=== PATIENT | female | born 1955 | race Caucasian/White ===

== ENCOUNTER 2017-06-01 13:18 | Outpatient (CLI) | payer OTHER | END 2017-06-01 13:19 | disposition home or self-care (01) | LOC: WCC 13:18 | PROVIDERS: ATTEND Family Medicine | DX: K94.00 Colostomy complication, unspecified (principal) | CPT/HCPCS: 99211; G0463 ==

== ENCOUNTER 2018-07-16 07:42 | Outpatient (CLI) | payer OTHER ==
--- NOTE | 2018-07-16 09:34 | BD ---
DEXA BONE DENSITY STUDY: HISTORY: Postmenopausal. FINDINGS: Lumbar Spine: BMD (g/cm2) L1 0.868 T-Score: -1.1 L2 0.878 T-Score: -1.4 L3 0.864 T-Score: -2.0 L4 0.873 T-Score: -1.7 L1-L4 0.871 T-Score: -1.6 Femoral Neck: 0.754 T-Score: -0.9 Total Femur: 0.843 T-Score: -0.8 Impression: Normal bone mineral density of the left femoral neck and osteopenia of the lumbar spine. POS: [facility]
== END 2018-07-16 07:43 | disposition home or self-care (01) ==
LOC: BICMAMMO 07:42
PROVIDERS: ATTEND Internal Medicine Rheumatology
DX: M81.0 Age-related osteoporosis without current pathological fracture (principal); M85.88 Other specified disorders of bone density and structure, other site
CPT/HCPCS: 77080

== ENCOUNTER 2020-01-03 09:26 | Emergency (ER) | payer SELFPAY ==
[2020-01-03] MEDS ORDERED: HYDROcodone/Acetaminophen 5/325 mg Tablet ONE (09:48)
--- NOTE | 2020-01-03 09:51 | RAD ---
XR Knee Lt 4 View STANDARD HISTORY: Left knee pain FINDINGS: No fracture or dislocation is identified. No significant arthritic changes are seen.
[2020-01-03] MEDS ORDERED: Ibuprofen 200 MG TAB ONE (09:58)
== END 2020-01-03 10:35 | disposition home or self-care (01) ==
LOC: ERS 09:26
DX: M25.562 Pain in left knee (principal); I10 Essential (primary) hypertension; F41.9 Anxiety disorder, unspecified; M81.0 Age-related osteoporosis without current pathological fracture; Z79.899 Other long term (current) drug therapy

== ENCOUNTER 2020-01-20 10:34 | Outpatient (CLI) | payer OTHER ==
--- NOTE | 2020-01-20 14:10 | MRI ---
MRI OF THE LEFT KNEE WITHOUT CONTRAST: 01/20/20 INDICATION: History of left knee pain. COMPARISON: Left knee radiograph dated 01/03/20. FINDINGS: There is a full thickness radial tear involving the posterior root of the medial meniscus with partia l medial extrusion. There is some intrasubstance degenerative signal involving the posterior horn and body of the medial meniscus. The lateral meniscus is intact. The ACL, PCL, MCL and LCL are intact. The extensor mechanism is intact. There is a small subchondral insufficiency fracture involving the anterior central aspect of the medi al femoral condyle on image 14 of series 5 with underlying subchondral edema. There is an area of mil d chondrosis overlying this region. Very small marginal osteophytes affecting all major compartments of the left knee. There is a moderat e sized Costello's cyst. IMPRESSION: 1. Mild osteoarthrosis left knee. 2. Medial meniscal tear. 3. Small subchondral insufficiency fracture involving the anterior medial femoral condyle with s urrounding marrow edema. POS: [facility]
== END 2020-01-20 10:35 | disposition home or self-care (01) ==
LOC: SCSMRI 10:34
PROVIDERS: ATTEND Orthopaedic Surgery
DX: S83.242A Other tear of medial meniscus, current injury, left knee, initial encounter (principal); M17.12 Unilateral primary osteoarthritis, left knee; M84.452A Pathological fracture, left femur, initial encounter for fracture

== ENCOUNTER 2020-11-21 08:46 | Outpatient (CLI) | payer MEDICARE ==
[2020-11-21 11:36] LABS: Hemoglobin 14.2 g/dL (12.0-15.5); Mean Corpuscular HGB CONC 31.5 g/dL (32.0-36.0); Mean Corpuscular Hemoglobin 29.3 pg (27.0-33.0); Mean Platelet Volume 12.4 fl (7.4-10.4); Platelet Count 253 10x3/uL (150-450); RBC Distribution Width 15.6 % (11.5-14.5); Red Blood Cell (RBC) Count 4.85 10x6/uL (3.90-5.03); White Blood Cell (WBC) Count 14.5 10x3/uL (3.5-10.5)
[2020-11-21 11:38] LABS: Prothrombin Time 11.2 sec (9.5-12.1)
[2020-11-21 11:42] LABS: Anion Gap 15 mmol/L (10-20); BUN (Urea Nitrogen) 12 mg/dL (9.8-20.1); Calc. Creatinine Clearance 0 mL/min (70-130); Calcium 9.2 mg/dL (7.8-10.44); Carbon Dioxide 18 mmol/L (23-31); Chloride 108 mmol/L (98-107); Glucose 110 mg/dL (80-115); Potassium 4.8 mmol/L (3.5-5.1); Sodium 136 mmol/L (136-145)
[2020-11-21 12:06] LABS: MDiff Complete? YES
[2020-11-21 12:13] LABS: Monocytes 11 % (0-10); Neutrophil 31 % (42-75)
[2020-11-21 12:14] LABS: Lymphocytes 57 % (21-51)
[2020-11-21 12:15] LABS: Eosinophils 1 % (0-10)
[2020-11-21 12:17] LABS: Platelet Morphology Comment Appears Adequate; RBC Morphology Normal
[2020-11-21 12:38] LABS: Bilirubin Neg (Negative); Blood, Urine Negative (Negative); Clarity Clear (Clear); Glucose, Urine (Dipstick) Normal (Negative); Ketone, Urine Negative (Negative); Leukocyte Negative (Negative); Nitrite Negative (Negative); Protein, Urine (Dipstick) Negative (Neg-Trace); Urobilinogen Normal mg/dL (Less than 2)
[2020-11-21 12:54] LABS: Bacteria/HPF Rare-Few HPF (None Seen); RBC/HPF 0-3 HPF (0-3); Squamous Epithelial 0-3 HPF (0-3); WBC/HPF 0-3 HPF (0-3)
[2020-11-21 12:55] LABS: Mucous/LPF Rare LPF (<2+)
[2020-11-22 11:48] LABS: SARS-CoV-2 PCR by NAA Not Detected (NotDetected)
== END 2020-11-21 08:47 | disposition home or self-care (01) ==
LOC: LABBT 08:46
PROVIDERS: ATTEND Orthopaedic Surgery
DX: Z01.818 Encounter for other preprocedural examination (principal); M17.32 Unilateral post-traumatic osteoarthritis, left knee; Z20.822 Contact with and (suspected) exposure to COVID-19
CPT/HCPCS: 80048; 81001; 85025; 85610; 87081; 93005; U0003; U0005; 93010

== ENCOUNTER 2020-11-26 05:39 | Inpatient (IN) | payer MEDICARE ==
[2020-11-26] MEDS ORDERED: Tranexamic Acid 1,000 MG/10 ML VIAL ONE (06:03)
[2020-11-26] MEDS ORDERED: Vancomycin 1 GM/200 ML BAG ONE (06:03)
[2020-11-26] MEDS ORDERED: Fentanyl 100 MCG/2 ML VIAL ONE ×5 (06:20→09:34)
[2020-11-26] MEDS ORDERED: Midazolam HCl 2 mg/2 ml Vial ONE ×2 (06:20→06:26)
[2020-11-26] MEDS ORDERED: Lidocaine 1% (PF) 30 ML VIAL ONE (06:27)
[2020-11-26] MEDS ORDERED: diphenhydrAMINE 25 MG CAP PO PRN (06:49)
[2020-11-26] MEDS ORDERED: Ondansetron PF 4 MG/2 ML Vial IVP PRN ×2 (06:49→08:30)
[2020-11-26] MEDS ORDERED: Acetaminophen 325 MG TAB PO PRN (06:49)
[2020-11-26] MEDS ORDERED: Promethazine HCl 25 MG/ML VIAL IM PRN ×3 (06:49→09:08)
[2020-11-26] MEDS ORDERED: HYDROcodone/Acetaminophen 10/325 mg Tablet PO PRN ×3 (06:49→08:30)
[2020-11-26] MEDS ORDERED: Zolpidem Tartrate 5 MG TAB PO PRN ×2 (06:49→08:30)
[2020-11-26] MEDS ORDERED: Sodium Chloride 0.9% 10 ML ONE (06:51)
[2020-11-26] MEDS ORDERED: ONDANSETRON HCL 4 MG PO PRN (06:51)
[2020-11-26] MEDS ORDERED: Ondansetron ODT 4 MG TAB PO PRN (07:04)
[2020-11-26] MEDS ORDERED: PROPOFOL 200 MG/20 ML VIAL ONE (07:20)
[2020-11-26] MEDS ORDERED: Lidocaine 1% PF 5 ML VIAL ONE (07:20)
[2020-11-26] MEDS ORDERED: Dexamethasone 20 MG/5 ML VIAL ONE (07:20)
[2020-11-26] MEDS ORDERED: Ondansetron PF 4 MG/2 ML Vial ONE (07:20)
[2020-11-26] MEDS ORDERED: ePHEDrine Sulfate 50 MG/10 ML VIAL ONE (07:20)
[2020-11-26] MEDS ORDERED: Ropivacaine 2% HCl/PF (20 MG/10 ML VIAL) ONE (07:20)
[2020-11-26] MEDS ORDERED: Bupivacaine HCl 0.5%/Epinephrine 1:200,000/PF 30 ml Vial ONE (07:20)
[2020-11-26] MEDS ORDERED: Fentanyl 100 MCG/2 ML VIAL SLOW IVP PRN (08:25)
[2020-11-26] MEDS ORDERED: Ropivacaine HCl/PF 250 ML in Premix Bag 1 BAG NERVE BLCK SCH (08:30)
[2020-11-26] MEDS ORDERED: traMADol HCl 50 MG TAB PO PRN ×2 (08:30)
[2020-11-26] MEDS ORDERED: Non-Formulary Item 1 EACH (Sertraline Hcl [Zoloft] 50 MG Tab) PO SCH (09:00)
[2020-11-26] MEDS ORDERED: PENTASA PO SCH (09:00)
[2020-11-26] MEDS ORDERED: Non-Formulary Item 1 EACH (Omeprazole [Omeprazole] 20 MG Capsule.Dr) PO SCH (09:00)
[2020-11-26] MEDS ORDERED: Promethazine HCl 25 MG/ML VIAL SLOW IVP PRN (09:08)
[2020-11-26] MEDS ORDERED: Ondansetron HCl/PF 4 MG/2 ML Vial IVP PRN (09:08)
[2020-11-26] MEDS ORDERED: Morphine 4 MG/ML VIAL ONE (09:33)
[2020-11-26] MEDS ORDERED: Ketorolac Tromethamine 30 MG/ML VIAL IVP SCH (14:00)
[2020-11-26] MEDS: Ferrous Gluconate 324 MG TAB PO SCH ×2 (15:32→20:40)
[2020-11-26] MEDS: Senokot S 8.6-50 MG TAB PO SCH ×2 (15:33→20:40)
[2020-11-26] MEDS: Multivitamin W/ Minerals 1 TAB PO SCH (15:33)
[2020-11-26] MEDS: Aspirin 81 mg Enteric Coated Tablet PO SCH ×2 (16:39→20:37)
[2020-11-26] MEDS: Ketorolac Tromethamine 30 MG/ML VIAL IVP SCH ×2 (16:40)
[2020-11-26 17:09] VITALS: BMI 28.0
[2020-11-26] MEDS ORDERED: Vancomycin 1.5 GRAM/300 ML BAG 1.5 GM in Premix Bag 1 BAG IVPB SCH (18:00)
[2020-11-26] MEDS ORDERED: Vancomycin HCl 1.5 GM in Sodium Chloride 0.9% 250 ML 300 ML IVPB SCH (18:00)
[2020-11-26] MEDS: Sodium Chloride 0.9% 1,000 ML IV SCH (18:46)
[2020-11-26] MEDS: Lisinopril 10 MG TAB PO SCH (20:38)
[2020-11-26] MEDS: Atorvastatin Calcium 20 MG TAB PO SCH (20:40)
[2020-11-26] MEDS ORDERED: LISINOPRIL 10 MG PO SCH (21:00)
[2020-11-27] MEDS: Ketorolac Tromethamine 30 MG/ML VIAL IVP SCH ×5 (01:52→23:26)
[2020-11-27 05:31] LABS: Hemoglobin 11.5 g/dL (12.0-16.0); Mean Corpuscular HGB CONC 32.3 g/dL (32.0-36.0); Mean Corpuscular Volume 95.7 fL (78.0-98.0); Mean Platelet Volume 9.5 fL (7.4-10.4); Platelet Count 225 thou/uL (130-400); RBC Distribution Width 13.3 % (11.5-14.5); Red Blood Cell (RBC) Count 3.73 mill/uL (4.20-5.40); White Blood Cell (WBC) Count 27.6 thou/uL (4.8-10.8)
[2020-11-27] MEDS: Sodium Chloride 0.9% 1,000 ML IV SCH ×2 (06:07→14:24)
[2020-11-27] MEDS: Senokot S 8.6-50 MG TAB PO SCH ×2 (08:50→21:51)
[2020-11-27] MEDS: Ferrous Gluconate 324 MG TAB PO SCH ×2 (08:51→21:49)
[2020-11-27] MEDS: Aspirin 81 mg Enteric Coated Tablet PO SCH ×2 (08:57→21:49)
[2020-11-27] MEDS: Multivitamin W/ Minerals 1 TAB PO SCH (08:58)
[2020-11-27] MEDS ORDERED: MESALAMINE 250 MG PO SCH (09:00)
[2020-11-27] MEDS: Atorvastatin Calcium 20 MG TAB PO SCH (21:50)
[2020-11-27] MEDS: Lisinopril 10 MG TAB PO SCH (21:50)
[2020-11-27] MEDS: HYDROcodone/Acetaminophen 10/325 mg Tablet PO PRN (23:26)
[2020-11-28] MEDS: Sodium Chloride 0.9% 1,000 ML IV SCH ×2 (01:39→10:03)
[2020-11-28] MEDS: Ketorolac Tromethamine 30 MG/ML VIAL IVP SCH (07:22)
[2020-11-28] MEDS: Aspirin 81 mg Enteric Coated Tablet PO SCH (08:46)
[2020-11-28] MEDS: Ferrous Gluconate 324 MG TAB PO SCH (08:46)
[2020-11-28] MEDS: Multivitamin W/ Minerals 1 TAB PO SCH (08:47)
[2020-11-28] MEDS: HYDROcodone/Acetaminophen 10/325 mg Tablet PO PRN ×2 (08:47→13:33)
[2020-11-28] MEDS: Senokot S 8.6-50 MG TAB PO SCH (08:47)
[2020-11-28 12:12] VITALS: BP 119/69; TEMP 97.9
== END 2020-11-28 14:00 | disposition home or self-care (01) | DRG 470 ==
LOC: SDC 05:39 → SJJU 06:50
PROVIDERS: ADMIT Orthopaedic Surgery; ATTEND Orthopaedic Surgery
PROC: 0SRD0J9 Replacement of Left Knee Joint with Synthetic Substitute, Cemented, Open Approach (ICD-10-PCS; principal; 2020-11-26)
PROC: 8E0YXBZ Computer Assisted Procedure of Lower Extremity (ICD-10-PCS; 2020-11-26)
DX: M17.12 Unilateral primary osteoarthritis, left knee (principal); K50.90 Crohn's disease, unspecified, without complications; Z20.822 Contact with and (suspected) exposure to COVID-19; I10 Essential (primary) hypertension; E78.5 Hyperlipidemia, unspecified; E03.9 Hypothyroidism, unspecified; Z96.641 Presence of right artificial hip joint; F41.9 Anxiety disorder, unspecified; M85.80 Other specified disorders of bone density and structure, unspecified site; Z79.899 Other long term (current) drug therapy; Z85.89 Personal history of malignant neoplasm of other organs and systems
CPT/HCPCS: 36415; 85027; C1713; C1776; J0690; J1100; J1885; J2001; J2250; J2270; J2405; J2704; J2795; J3010; J3370